=== PATIENT | male | born 1965 | race Caucasian/White ===

== ENCOUNTER 2016-08-19 12:54 | Emergency (ER) | payer SELFPAY ==
[2016-08-19 13:25] LABS: ABSOLUTE NEUTROPHIL COUNT 5.7 K/mm3 (1.8-7.7); BASO # 0.1 K/mm3 (0.0-0.2); BASO % 0.6 % (0.2-1.0); EOS # 0.1 (0.0-0.5); HEMATOCRIT 44.2 % (32.0-52.0); HEMOGLOBIN 14.7 gm/l (14.0-18.0); IMM NEUT% 0.3 % (0-1); LYMPH # 2.1 (1.0-4.8); LYMPH % 24.1 % (15-45); MEAN CELL VOLUME 92.5 fl (80.0-94.0); MEAN CORPUSCULAR HEMOGLOBIN 30.8 pg (27.0-31.0); MEAN CORPUSCULAR HGB CONC 33.3 g/dl (33.0-37.0); MEAN PLATELET VOLUME 10.6 fl (7.4-10.4); MONO # 0.7 (0.0-0.8); MONO % 7.9 % (4-12); NEUT % 66.1 % (43-75); PLATELET COUNT 206 K/mm3 (130-400); RED CELL DISTRIBUTION WIDTH 12.3 % (11.5-14.5)
--- NOTE | 2016-08-19 13:33 | RAD ---
Exam: Two-view chest COMPARISON: None INDICATION: Chest pain. FINDINGS: PA and lateral views of the chest were obtained. Cardiac silhouette is within normal limits. Lungs are normally inflated. There is minor right basilar scarring or atelectasis. Lung rocha are otherwise clear. There is no pleural effusion. Bones of the chest wall within normal limits. IMPRESSION: Minor right basilar atelectasis or scarring.
[2016-08-19 13:35] LABS: ALB/GLOB RATIO 1.4 (>1.0); ALBUMIN 4.1 gm/dL (3.5-5.7); CALCIUM 9.3 mg/dL (8.6-10.3)
[2016-08-19] MEDS ORDERED: ASPIRIN CHEWTAB 81 MG TABLET ONE (13:37)
[2016-08-19 13:41] LABS: TROPONIN I < 0.01 ng/ml (0.0-0.06)
[2016-08-19 13:45] LABS: CKMB ISOENZYME 0.9 ng/ml (0.6-6.3)
[2016-08-19] MEDS ORDERED: LORAZEPAM 2 MG/ML 1ML SDV ONE (15:01)
--- NOTE | 2016-08-19 18:35 | NUC MED ---
MYOCARDIAL PERFUSION STUDY HISTORY: Chest pain. Masoud stress protocol was utilized. Triplanar orthogonal images were reconstructed from SPECT acquisitions during rest and stress phases, gated SPECT acquisition during stress imaging utilized to assess wall motion and ejection fraction. 36.8 mCi of technetium labeled sestamibi was utilized during stress imaging. 11.4mCi of technetium labeled sestamibi was utilized during rest imaging. Imaging was reconstructed on a dedicated workstation WALL MOTION: Grossly concentric. EJECTION FRACTION: 80%. PERFUSION DEFECTS: Minor inferoapical defect likely reflects diaphragmatic artifact. No dominant reversible. ABNORMAL RIGHT HEART UPTAKE: None identified. LEFT VENTRICULAR CAVITY DILATATION WITH STRESS: Not identified. IMPRESSION: No scintigraphic evidence of focal inducible ischemia or focal infarct taking into account probable diaphragmatic artifact. Grossly concentric wall motion, ejection fraction 80%. Results were electronically transmitted to the electronic medical record at 08/19/2016, 1831 hours.
== END 2016-08-19 18:48 | disposition home or self-care (01) ==
LOC: ED 12:54
DX: R07.9 Chest pain, unspecified (principal); F31.9 Bipolar disorder, unspecified; F41.9 Anxiety disorder, unspecified; Z79.899 Other long term (current) drug therapy
CPT/HCPCS: 83690; 85025; 82550; 82553; 80053; 84484; 71020; 78452; 99284 ×2; 96374; 93017; A9270; J2060; A9500